=== PATIENT | female | born 1980 | race Two or more races ===

== ENCOUNTER 2024-08-09 23:35 | Emergency (ER) | payer BC, MEDICAID, SELFPAY ==
[2024-08-09 23:41] VITALS: BP 119/71; PULSE 127; RESP 19; TEMP 36.6; O2SAT 94; BMI 27.4
--- NOTE | 2024-08-09 23:45 | PD.EDALLER ---
ED Allergic Reaction RME/HPI General Chief complaint: Allergic Reaction Stated complaint: ALLERGIC REACTION Time Seen by Provider: 08/09/24 23:41 Source: patient Arrival date/time: 08/09/24 23:35 Mode of arrival: ambulatory Limitations: no limitations RME / HPI RME / HPI narrative: DR DUMONT MAIN ED EVALUATION: 44-year-old female presenting to the Emergency Department for evaluation of a generalized allergic reaction. She reports that at approximately 23:15, she took one diclofenac tablet, which she obtained from [employer]. Shortly after ingestion, she developed diffuse redness and itching, along with facial swelling. In an attempt to manage her symptoms, she took two Benadryl tablets prior to arrival, but despite this, her rash, pruritus, and facial swelling persisted, prompting her visit to the ER. She denies any associated pain, difficulty breathing, throat tightness, wheezing, or other systemic symptoms at this time. Her past surgical history includes an appendectomy and cholecystectomy. Social history is negative for tobacco, alcohol, or drug use. Related Data Home Medications ?Medication ?Instructions ?Recorded ?Confirmed lorazepam 0.5 mg tablet 0.5 mg PO QDAY PRN ANXIETY #0 tabs 11/10/14 Previous Rx's ?Medication ?Instructions ?Recorded omeprazole 20 mg capsule,delayed 20 mg PO QDAY ##30 08/02/16 release omeprazole magnesium 20 mg 20 mg PO QDAY #14 tabs 09/13/19 tablet,delayed release (Prilosec OTC) Allergies Allergy/AdvReac Type Severity Reaction Status Date / Time morphine Allergy Mild Rash Verified 08/09/24 23:44 milk Allergy Unknown Verified 08/09/24 23:44 Review of Systems Review of Systems Systems Reviewed: All systems reviewed, normal except as documented Past Medical History Past Medical History NEUROLOGIC: Negative Neurological Disorders CARDIAC: Negative Cardiac Disorders or Congestive Heart Failure RESPIRATORY: Negative Chronic Obstructive Pulmonary Disease (COPD) GASTROINTESTINAL: Positive Gastrointestinal Disorders GENITOURINARY: Negative Genitourinary Disorders or Renal Disease REPRODUCTIVE: Negative Pelvic Inflammatory Disease MUSCULOSKELETAL: Negative Musculoskeletal Disorders ENDOCRINE: Negative Endocrine Disorders, Diabetes Mellitus Type 1 or Diabetes Mellitus Type 2 HEMATOLOGIC: Negative Blood Disorders OTHER HISTORY: Negative Autoimmune Disease, Blood Transfusions, Organ Transplant, MRSA, VRSA, Vancomycin-Resistant Enterococci, Clostridium Difficile or Cancer Family History FAMILY HISTORY: Negative Family Cardiac Disorders Surgical History SURGICAL: Negative Cardiac Surgery, Endocrine Surgery, Ear Surgery, Abdominal Surgery, Nephrectomy, Joint Replacement, Neurologic Surgery, Mastectomy or Organ Transplant Social History SMOKING STATUS: Never smoker ED Exam Narrative Physical exam: GENERAL APPEARANCE: alert and oriented x 4, well-developed, well-nourished, no acute distress VITALS: All vitals were reviewed and the pulse ox is 94% on room air, which is normal according to my interpretation. HEENT: Normocephalic, atraumatic; pupils equal, round, reactive to light; EOMI; mucous membranes pink, moist; oropharynx clear NECK: Supple LUNGS: CTABL; no wheezes, no rales, no rhonchi HEART: Regular rate, regular rhythm; normal S1, S2; no murmurs ABDOMEN: non distended; normal BS; soft, no tenderness, no guarding, no rebound; no masses, no organomegaly, no hernia BACK: no CVA tenderness EXTREMITIES: atraumatic; no edema NEUROLOGIC: awake; alert and oriented x4; cranial nerves II-XII grossly intact; no focal sensory or motor deficits PSYCHIATRIC: appropriate mood and affect SKIN: warm, dry, normal color; no rashes General Limitations: Present no limitations Course Quality Measures none Orders Category Date Time Status DiphenhydrAMINE INJ [Benadryl Inj] Med 08/09/24 23:40 Discontinued 25 mg IVP X1 ONE EPINEPHrine Inj [Adrenalin Inj] Med 08/09/24 23:41 Discontinued 0.3 mg SC X1 ONE Famotidine Inj [Pepcid Inj] Med 08/09/24 23:40 Discontinued 20 mg IVP X1 ONE MethylPREDNISolone.* [SoluMEDROL Inj] Med 08/09/24 23:40 Discontinued 125 mg IVP X1 ONE Vital Signs Vital signs: Vital Signs Temperature 97.9 F 08/09/24 23:41 Pulse Rate 127 H 08/09/24 23:41 Respiratory Rate 19 08/09/24 23:41 Blood Pressure 119/71 08/09/24 23:41 Pulse Oximetry (%) 94 L 08/09/24 23:41 Oxygen Delivery Method Room Air 08/09/24 23:41 Allergic Reaction MDM Narrative MDM Narrative:: Scribe Attestation: I, Oswald Roper, am scribing for and in the presence of Dr. Dumont. Provider Notation: Although this document has been carefully reviewed, there may still be some phonetic and other typographical errors. These errors are purely grammatical due to imperfections in the software program and should not be construed in any way to compromise the substance of the patient's medical care during this visit. Patient data External records reviewed:: [facility] previous records Clinical information provided by:: patient Social determinants that could affect healthcare access:: none Patient has the following chronic illnesses:: see PMH How is presenting disease/condition affected by chronic disease/condition?: uneffected by Evaluation data The following diagnostics were reviewed and interpreted by me:: other (specify) (na) Lab and/or radiology exams considered but not ordered:: na Interpretation Summary: na Medications / Prescriptions Medications or Prescriptions considered but not ordered:: na Medication administrations:: Medication Administration History Discontinued Medications Diphenhydramine HCl (Diphenhydramine Inj 50 Mg/Ml Vial) 25 mg IVP X1 ONE Stop: 08/09/24 23:41 Last Admin: 08/09/24 23:47 Dose: 25 mg Documented By: KG Epinephrine HCl (Epinephrine Inj 1 Mg/Ml Amp) 0.3 mg SC X1 ONE Stop: 08/09/24 23:42 Last Admin: 08/09/24 23:47 Dose: 0.3 mg Documented By: KG Famotidine (Famotidine Inj 10 Mg/Ml Vial 2 Ml) 20 mg IVP X1 ONE Stop: 08/09/24 23:41 Last Admin: 08/09/24 23:46 Dose: 20 mg Documented By: KG Methylprednisolone Sodium Succinate (Methylprednisolone Sod Succ 62.5 Mg/Ml 2ml Vial) 125 mg IVP X1 ONE Stop: 08/09/24 23:41 Last Admin: 08/09/24 23:46 Dose: 125 mg Documented By: KG as above Consultations Consultation(s) initiated? (list below): No Diagnosis Differential Diagnosis allergic reaction: allergic reaction, contact dermatitis, adverse reaction to drug and urticaria Most likely diagnosis given after review of the tests above:: Allergic reaction Admission Indicated Admission indicated?: not indicated Admission Request Was there a request for admission?: No Disposition Plan Disposition Plan: Discharge Discharge Attestation Discharge Attestation: The patient and all family members were given an opportunity to ask questions and understood the discharge instructions. Discharge instructions specifically effects, indications for sooner follow up or return to the emergency department, and the expected course of current diagnosis. Patient condition: Stable Discharge Plan Plan Patient Disposition: HOME (Self Care) Prescriptions/Referrals Prescriptions/Med Rec: No Action lorazepam 0.5 MG tablet 0.5 mg PO QDAY PRN (Reason: ANXIETY) Qty: 0 omeprazole 20 MG capsule,delayed release(DR/EC) 20 mg PO QDAY Qty: 30 0RF Prilosec OTC 20 mg tablet,delayed release (DR/EC) 20 mg PO QDAY Qty: 14 0RF Referrals: No Primary/Family,Physician [Primary Care Provider] - In 1 week Problem List Clinical Impression: Allergic reaction Patient/Caregiver Discharge Instructions Education Materials: ED Medicine Reaction: Allergic Print Language: Azeri Stand Alone Forms: [facility] Info., Patient Portal Info Letter
[2024-08-09] MEDS: FAMOTIDINE INJ 10 MG/ML VIAL 2 ML 20 MG IVP (23:46)
[2024-08-09] MEDS: MethylPREDNISolone SOD SUCC 62.5 MG/ML 2ML VIAL 125 MG IVP (23:46)
[2024-08-09 23:47] VITALS: BP 119/71; PULSE 101
[2024-08-09] MEDS: EPINEPHrine INJ 1 MG/ML AMP 0.3 MG SC (23:47)
[2024-08-09] MEDS: DiphenhydrAMINE INJ 50 MG/ML VIAL 25 MG IVP (23:47)
[2024-08-10 00:45] VITALS: BP 107/69; PULSE 69; RESP 18; O2SAT 97
[2024-08-10 02:00] VITALS: BP 96/65; PULSE 68; RESP 18; O2SAT 95
[2024-08-10 03:30] VITALS: BP 98/63; PULSE 74; RESP 17; O2SAT 95
[2024-08-10 04:55] VITALS: BP 101/69; PULSE 92; RESP 19; TEMP 36.7; O2SAT 98
[2024-08-10 05:02] VITALS: BP 101/69; PULSE 92; RESP 19; TEMP 36.7; O2SAT 98
== END 2024-08-10 05:06 | disposition home or self-care (01) ==
PROVIDERS: Emergency Provider Emergency Medicine
DX: R22.0 Localized swelling, mass and lump, head (principal); L27.0 Generalized skin eruption due to drugs and medicaments taken internally; L29.9 Pruritus, unspecified; T39.395A Adverse effect of other nonsteroidal anti-inflammatory drugs [NSAID], initial encounter
CPT/HCPCS: 96372; 96374; 96375; 99284; J0171; J1200; J2919; J3490

== ENCOUNTER → 2024-10-28 | Outpatient (CLI) | payer BC, SELFPAY ==
--- NOTE | 2024-10-28 14:30 | XR_ITS ---
Examination: Screening digital mammography, bilateral Computer aided detection 3-D breast Tomosynthesis, bilateral Date and time of exam: October 28, 2024 1420 hours Compared to mammograms dating to August 15, 2020 Indication: Screening Technique: Nonmagnified MLO, CC views of the breasts to been obtained, reconstructed from 3-D Tomosynthesis images. R2 computer aided detection program utilized for evaluation of suspicious masses and/or abnormal calcifications. 3-D Tomosynthesis images obtained. Findings: The breasts are heterogeneously dense, which may obscure small masses 14 mm focal asymmetry upper outer right breast anterior depth 25 mm focal asymmetry 3:00 position left breast Impression: BI-RADS Category 0: Incomplete: Need additional imaging evaluation Recommend follow-up spot tomographic views 14 mm focal asymmetry upper outer right breast and 25 mm focal asymmetry 3:00 position left breast as well as bilateral breast sonography to complete the workup.
== END | disposition home or self-care (01) ==
LOC: CDIM 14:11
PROVIDERS: PCP Physician Assistant; Referring Provider Physician Assistant; Visit Provider Physician Assistant
DX: Z12.31 Encounter for screening mammogram for malignant neoplasm of breast (principal); N64.89 Other specified disorders of breast
CPT/HCPCS: 77063; 77067

== ENCOUNTER → 2024-11-05 | Outpatient (CLI) | payer BC, SELFPAY ==
--- NOTE | 2024-11-05 10:23 | XR_ITS ---
Examination: Diagnostic digital mammography, bilateral Computer aided detection 3-D breast Tomosynthesis, bilateral Date and time of exam: November 05, 2024 1109 hours INDICATIONS: Mammogram 01/28/2025 14 mm focal asymmetry upper outer right breast anterior depth 25 mm focal asymmetry 3:00 position left breast Technique: Nonmagnified MLO, CC views of the breasts to been obtained, reconstructed from 3-D Tomosynthesis images. R2 computer aided detection program utilized for evaluation of suspicious masses and/or abnormal calcifications. 3-D Tomosynthesis images obtained. Findings: The breasts are heterogeneously dense, which may obscure small masses No suspicious masses are noted on the spot compression views Impression: BI-RADS Category 2: Benign findings Return to yearly follow-up mammography.
--- NOTE | 2024-11-05 10:30 | XR_ITS ---
Examination: Breast ultrasound complete, bilateral Date and time of exam: November 05, 2024 1043 hours INDICATIONS: Mammogram October 28, 2024 14 mm focal asymmetry upper outer right breast anterior depth 25 mm focal asymmetry 3:00 position left breast Technique: Real-time grayscale ultrasonographic imaging bilateral breasts, including all 4 quadrants as well as nipple retroareolar and axillary regions. Findings: Sonographic images right breast 8:00 cyst 5 x 5 mm No solid nodules Sonographic images left breast No cystic or solid mass IMPRESSION: BI-RADS Category 2: Benign findings
== END | disposition home or self-care (01) ==
PROVIDERS: PCP Physician Assistant; Referring Provider Physician Assistant; Visit Provider Physician Assistant
DX: R92.323 Mammographic fibroglandular density, bilateral breasts (principal); N60.01 Solitary cyst of right breast
CPT/HCPCS: 76641; 77062; 77066; G0279